=== PATIENT | female | born 1965 | race Caucasian/White ===

== ENCOUNTER → 2017-05-12 | Outpatient (CLI) | payer OTHER | LOC: FIMAGING 07:03 | PROVIDERS: ATTEND Internal Medicine | DX: I67.9 Cerebrovascular disease, unspecified (principal); R93.0 Abnormal findings on diagnostic imaging of skull and head, not elsewhere classified ==

== ENCOUNTER 2017-06-19 20:29 | Emergency (ER) | payer OTHER ==
[2017-06-19] MEDS ORDERED: NITROFURANTOIN MACROBID 100 MG CAP PO ONE ×2 (20:44→20:57)
[2017-06-19 20:48] VITALS: BP 140/94; PULSE 80; RESP 16; TEMP 98.2; O2SAT 100
--- NOTE | 2017-06-19 20:48 | EDPHY ---
H & P Time Seen by Provider: 06/19/17 20:40 HPI/ROS: CHIEF COMPLAINT: Dysuria, frequency HISTORY OF PRESENT ILLNESS: The patient is a 52-year-old female who comes to the emergency department complaining of dysuria and frequency that began about 2 hr ago. Her sister is also currently being treated for urinary tract infection. She denies flank pain. She denies fevers. She denies nausea vomiting or abdominal pain. No bleeding or discharge. No diarrhea. REVIEW OF SYSTEMS: Constitutional: denies: chills, fever, recent illness, recent injury EENTM: denies: blurred vision, double vision, nose congestion Respiratory: denies: cough, shortness of breath Cardiac: denies: chest pain, irregular heart rate, lightheadedness, palpitations Gastrointestinal/Abdominal: denies: abdominal pain, diarrhea, nausea, vomiting, blood streaked stools Genitourinary: See HPI Musculoskeletal: denies: joint pain, muscle pain Skin: denies: lesions, rash, jaundice, bruising Neurological: denies: headache, numbness, paresthesia, tingling, dizziness, weakness Hematologic/Lymphatic: denies: blood clots, easy bleeding, easy bruising Immunologic/allergic: denies: HIV/AIDS, transplant EXAM: GENERAL: Well-appearing, well-nourished and in no acute distress. HEAD: Atraumatic, normocephalic. EYES: Pupils equal round and reactive to light, extraocular movements intact, sclera anicteric, conjunctiva are normal. ENT: TMs normal, nares patent, oropharynx clear without exudates. Moist mucous membranes. NECK: Normal range of motion, supple without lymphadenopathy or JVD. LUNGS: Breath sounds clear to auscultation bilaterally and equal. No wheezes rales or rhonchi. HEART: Regular rate and rhythm without murmurs, rubs or gallops. ABDOMEN: Soft, nontender, normoactive bowel sounds. No guarding, no rebound. No masses appreciated. BACK: No CVA tenderness, no spinal tenderness, step-offs or deformities EXTREMITIES: Normal range of motion, no pitting or edema. No clubbing or cyanosis. NEUROLOGICAL: Cranial nerves II through XII grossly intact. Normal speech, normal gait. 5/5 strength, normal movement in all extremities, normal sensation PSYCH: Normal mood, normal affect. SKIN: Warm, dry, normal turgor, no visible rashes or lesions. Source: Patient Exam Limitations: No limitations - Medical/Surgical History Hx Asthma: No Hx Chronic Respiratory Disease: No Hx Diabetes: No Hx Cardiac Disease: No Hx Renal Disease: No Hx Cirrhosis: No Hx Alcoholism: No Hx HIV/AIDS: No Hx Splenectomy or Spleen Trauma: No Other PMH: ortho,gb - Family History Significant Family History: No pertinent family hx - Social History Smoking Status: Never smoked Alcohol Use: Sober Drug Use: None Constitutional: Initial Vital Signs Temperature (C) 36.8 C 06/19/17 20:46 Heart Rate 80 06/19/17 20:46 Respiratory Rate 16 06/19/17 20:46 Blood Pressure 140/94 H 06/19/17 20:46 O2 Sat (%) 100 06/19/17 20:46 O2 Delivery Mode Room Air Allergies/Adverse Reactions: morphine Allergy (Unknown, Verified 06/19/17 20:36) NUCENTA Allergy (Unknown, Uncoded 06/19/17 20:36) Home Medications: Medication Instructions Recorded Vits 11/29/10 Levothyroxine 07/16/15 Cream Base No. 9 [Hrt Base] 06/19/17 Fluconazole [Diflucan (*)] 150 mg PO ONCE #3 tab 06/19/17 Nitrofurantoin Monohyd/M-Cryst 100 mg PO BID #20 cap 06/19/17 [Nitrofurantoin [place]-Macrocrystal] Medical Decision Making ED Course/Re-evaluation: The patient states the Bactrim has worked for her in the past. She is requesting prescription for this. She is also requesting a prescription for Diflucan. Differential Diagnosis: Partial list of the Differential diagnosis considered include but were not limited to; urinary tract infection, pyelonephritis, yeast infection and although unlikely based on the history and physical exam, I also considered kidney stone, appendicitis. I discussed these differential diagnoses and the plan with the patient as well as the usual and expected course. The patient understands that the diagnosis is provisional and that in medicine we are not always correct and that further workup is often warranted. Usual and customary warnings were given. All of the patient's questions were answered. The patient was instructed to return to the emergency department should the symptoms at all worsen or return, otherwise to followup with the physician as we discussed. - Data Points Laboratory Results: 06/19/17 20:35 Urine Color PALE YELLOW Urine Appearance CLEAR Urine pH 6.0 (5.0-7.5) Ur Specific [place] <= 1.005 (1.002-1.030) Urine Protein NEGATIVE (NEGATIVE) Urine Ketones NEGATIVE (NEGATIVE) Urine Blood 2+ H (NEGATIVE) Urine Nitrate NEGATIVE (NEGATIVE) Urine Bilirubin NEGATIVE (NEGATIVE) Urine Urobilinogen 0.2 EU EU (0.2-1.0) Ur Leukocyte Esterase TRACE H (NEGATIVE) Urine RBC 5-10 /hpf H /hpf (0-3) Urine WBC 1-3 /hpf /hpf (0-3) Ur Epithelial Cells NONE SEEN /lpf /lpf (NONE-1+) Urine Bacteria TRACE /hpf H /hpf (NONE SEEN) Urine Glucose NEGATIVE (NEGATIVE) Medications Given: Discontinued Medications Nitrofurantoin Macrocrystals (Macrobid) 100 mg PO EDNOW ONE PRN Reason: Protocol Stop: 06/19/17 20:45 Last Admin: 06/19/17 20:54 Dose: 100 mg Departure - Departure Disposition: Home, Routine, Self-Care Clinical Impression: Urinary tract infection Qualifiers: Urinary tract infection type: site unspecified Hematuria presence: without hematuria Qualified Code(s): N39.0 - Urinary tract infection, site not specified Condition: Fair Instructions: Fluconazole (By mouth), Nitrofurantoin Combination (By mouth), Urinary Tract Infection in Women (ED) Referrals: Nicol Pearson MD [Primary Care Provider] - As per Instructions Prescriptions: Fluconazole [Diflucan (*)] 150 mg PO ONCE #3 tab Nitrofurantoin Monohyd/M-Cryst [Nitrofurantoin [place]-Macrocrystal] 100 mg PO BID #20 cap
== END 2017-06-19 21:01 | disposition home or self-care (01) ==
LOC: CED 20:29
DX: N39.0 Urinary tract infection, site not specified (principal); B96.20 Unspecified Escherichia coli [E. coli] as the cause of diseases classified elsewhere
CPT/HCPCS: 81003-PO; 81015-PO